=== PATIENT | female | born 1985 | race Caucasian/White ===

== ENCOUNTER 2019-05-22 09:42 | Outpatient (CLI) | payer MEDICARE, SELFPAY ==
--- NOTE | 2019-05-22 09:56 | CT_ITS ---
WS: [id number] CT ABDOMEN AND PELVIS WITH AND WITHOUT CONTRAST HISTORY: RLQ ABDOMINAL PAIN/HEMATURIA/HX OF OVARIAN CYST TECHNIQUE: Unenhanced 5 mm axial imaging first performed through the abdomen. Post contrast imaging t hrough the abdomen and pelvis. Oral contrast has been provided. Sagittal and coronal reformats are s ubmitted. All CT scans at [facility] use at least one of these dose optimization techniqu es: automated exposure control; mA and/or kV adjustment per patient size (includes targeted exams whe re dose is matched to clinical indication); or iterative reconstruction. CONTRAST: Omnipaque 300; 95 mL IV. DLP: 4318.84 mGy.cm COMPARISON: 01/07/2011, 07/26/2013. Groundglass opacification in the LEFT lower lobe. This opacification is been present on multiple prio r examinations in the past with no progression. Heart size is normal. No hiatal hernia. Mild hepatic steatosis without significant hepatomegaly. No liver mass. Normal bile ducts. Gallbladde r, pancreas, spleen, adrenal glands and aorta are normal. RIGHT kidney: Normal size RIGHT kidney with no mass or obstruction or calcifications. No uroepithelia l filling defects within the ureter or renal pelvis. LEFT kidney: Normal size LEFT kidney with no mass or obstruction or calcifications. No uroepithelial filling defects within the ureter or renal pelvis. No free fluid, free air or adenopathy in the abdomen or pelvis. The appendix is normal. No GI tract o bstruction. Uterus and ovaries are both identified and normal. There is a small follicle in the LEFT ovary measur ing 2.1 cm. Urinary bladder is normal. No osteoblastic or osteolytic bone disease. CT/CT abdomen pelvis wo/w [id number] IMPRESSION: 1. No renal calcifications, mass or obstruction. 2. Normal urinary bladder. 3. Multiple follicles LEFT ovary. 4. No adenopathy or ascites.
[2019-05-22] MEDS: iohexol 300 mg/mL 100 mL Btl IV (11:27)
== END 2019-05-22 09:43 | disposition home or self-care (01) ==
LOC: RAD 09:49
PROVIDERS: Family Provider Nurse Practitioner Family; PCP Nurse Practitioner Family; Visit Provider Nurse Practitioner Family
DX: R10.31 Right lower quadrant pain (principal); Z87.42 Personal history of other diseases of the female genital tract; R31.9 Hematuria, unspecified
CPT/HCPCS: 74178

== ENCOUNTER 2019-10-02 08:08 | Day surgery (SDC) | payer MEDICARE, SELFPAY ==
[2019-09-29 11:58] VITALS: BMI 39.9
[2019-10-02 08:43] VITALS: BP 114/70; PULSE 87; RESP 18; TEMP 36.1; O2SAT 100
[2019-10-02] MEDS: sodium chloride 0.9% 1,000 ML 100 ML IV (08:58)
--- NOTE | 2019-10-02 09:02 | ANES.PREANE2 ---
Pre-Anesthetic Assessment Pre-Anesthetic Assessment: Height/Weight: Height 1.57 m Weight 98.883 kg Temp Pulse Resp BP Pulse Ox 97.0 F L 87 18 114/70 100 10/02/19 08:43 10/02/19 08:43 10/02/19 08:43 10/02/19 08:43 10/02/19 08:43 Preop Diagnosis: c Proposed Procedure: Operation Date: 10/02/19 09:45 Proposed Procedures p EGD(Not Applicable) - Bridger Yang MD s Colonoscopy(Not Applicable) - Bridger Yang MD Last intake: Intake Last Liquid Date 10/02/19 Last Liquid Time 23:00 Social: Social History: Tobacco and No alcohol Exam: Pre-Anes Outpt Exam: alert, oriented x 3, clear to auscultation bilaterally and regular rate & rhythm Airway: Submandibular: WNL Cervical ROM: WNL MP: 1 Dentition: False (upper and lower) History/ROS: No significant history except as noted Pulmonary: Pulmonary: Asthma and [place] CV/HEM: CV/HEM: None reported : : None reported Hepatic: Hepatic: None reported GI: GI: GERD Metabolic: Metabolic: Morbid obesity and Thyroid Musc/skel: Musc/skel: Lower Back Pain Neuropsych: Neuropsych: Anxiety and Depression Anesthetic Plan: ASA status: 3 Anesthesia: Anesthesia Evaluation and MAC Risk of > 500 ml blood loss (7ml/kg in children): No Meds/Allergies Current Medications: Current Medications Generic Name Dose Route Start Last Admin Trade Name Freq PRN Reason Stop Dose Admin Sodium Chloride 1,000 mls @ 100 m ls/hr 10/02/19 08:45 10/02/19 08:58 Sodium Chloride 0.9% IV 10/03/19 08:44 100 mls/hr .Q10H SUYAPA Administration PFSH Anesthesia PFSH: Medical History Anxiety Asthma Depression Heartburn Hypothyroidism, unspecified Mental disability without special needs Family History Mother Glaucoma Hypertension Diabetes Father Cancer Social History Smoking and tobacco status: current every day smoker Alcohol intake: never Adopted: No Lives independently: No Marital status: Single History of recent travel: No Current gender identity: Female Data Anesthesia Cardiac Studies: No Data to Display
[2019-10-02 09:03] LABS: OR HCG Qualitative Urine Negative (Negative)
--- NOTE | 2019-10-02 10:18 | W.PM.OPSUD ---
Surgery/Procedure H&P Update DATE OF PROCEDURE: October 02, 2019 PREOP DIAGNOSIS: c PLANNED PROCEDURE: Operation Date: 10/02/19 09:45 Proposed Procedures p EGD(Not Applicable) - Bridger Yang MD s Colonoscopy(Not Applicable) - Bridger Yang MD
--- NOTE | 2019-10-02 10:19 | PM.OPSURHP ---
Providers/Chief Complaint Primary Care Provider: Jung Agarwal MD Chief Complaint: Colonscopy and egd History of Present Illness Edith Montalvo is a 33 year old female Medications/Allergies Home Medications Medication Instructions Recorded Confirmed Last Taken Type albuterol sulfate 2.5 mg INHALATION Q6H PRN 06/16/19 09/29/19 10/01/19 History budesonide 0.25 mg/2 mL suspension 2 ml INHALATION BID PRN 06/16/19 09/29/19 10/01/19 History for nebulization budesonide-formoterol HFA 80 2 puff INHALATION BID PRN 06/16/19 09/29/19 10/01/19 History mcg-4.5 mcg/actuation aerosol inhaler bupropion HCl 150 mg 24 hr tablet, 150 mg PO DAILY tab 06/16/19 09/29/19 10/01/19 History extended release levothyroxine 150 mcg capsule 150 mcg PO DAILY 06/16/19 09/29/19 10/01/19 History montelukast 10 mg tablet 10 mg PO DAILY 06/16/19 09/29/19 10/01/19 History Allergies Allergy/AdvReac Type Severity Reaction Status Date / Time Penicillins Allergy Severe peels skin Verified 09/29/19 11:55 off aspirin Allergy Unknown Verified 06/19/19 09:55 clindamycin Allergy Unknown Verified 06/19/19 09:55 PFSH PFSH: Medical History Anxiety Asthma Depression Heartburn Hypothyroidism, unspecified Mental disability without special needs Family History Mother Glaucoma Hypertension Diabetes Father Cancer Social History Smoking and tobacco status: current every day smoker Alcohol intake: never Adopted: No Lives independently: No Marital status: Single History of recent travel: No Current gender identity: Female Vital Signs Vitals Signs: Last Vital Signs Temp 97.0 F L 10/02/19 08:43 Pulse 87 10/02/19 08:43 Resp 18 10/02/19 08:43 BP 114/70 10/02/19 08:43 Pulse Ox 100 10/02/19 08:43 Coding Level of Care Code Acute Systems Applications Programming Lead for [employer]
[2019-10-02 10:33] VITALS: BP 117/67; PULSE 79; RESP 16; TEMP 36.9; O2SAT 100
--- NOTE | 2019-10-02 11:08 | ANE.PACU2 ---
Inpatient post-anesthesia follow up: Airway intact: Yes Vital signs: Temperature 98.5 F Pulse Rate 79 Respiratory Rate 16 Blood Pressure 117/67 Pulse Oximetry 100 Oxygen Delivery Me thod Nasal Cannula Oxygen Flow Rate 3 Fraction of Inspir ed Oxygen Hydration adequate: Yes Nausea and vomiting: Yes Pain level: 1 Mental status: Baseline
== END 2019-10-02 11:00 | disposition home or self-care (01) ==
PROVIDERS: PCP Family Medicine; Visit Provider Internal Medicine
PROC: 0DJ08ZZ Inspection of Upper Intestinal Tract, Via Natural or Artificial Opening Endoscopic (ICD-10-PCS; CPT 43235; principal; 2019-10-02 09:45)
PROC: 0DJD8ZZ Inspection of Lower Intestinal Tract, Via Natural or Artificial Opening Endoscopic (ICD-10-PCS; CPT 45378; 2019-10-02 09:45)
DX: K92.1 Melena (principal); R10.13 Epigastric pain; K21.9 Gastro-esophageal reflux disease without esophagitis; E66.01 Morbid (severe) obesity due to excess calories; Z68.39 Body mass index [BMI] 39.0-39.9, adult; E03.9 Hypothyroidism, unspecified; F41.9 Anxiety disorder, unspecified; F32.9 Major depressive disorder, single episode, unspecified; J45.909 Unspecified asthma, uncomplicated; F17.210 Nicotine dependence, cigarettes, uncomplicated
CPT/HCPCS: 12345; 43235; 84703; G0121; J2704; J7030

== ENCOUNTER → 2020-01-12 11:33 | Outpatient (BNVA) | payer MEDICARE, SELFPAY | PROVIDERS: PCP Family Medicine; Visit Provider Obstetrics & Gynecology | DX: Z11.59 Encounter for screening for other viral diseases (principal) | CPT/HCPCS: 87635 ==

== ENCOUNTER 2020-01-17 08:14 | Day surgery (SDC) | payer MEDICARE, SELFPAY ==
[2020-01-12 12:45] VITALS: BMI 39.4
--- NOTE | 2020-01-12 12:58 | ANES.PREANE2 ---
Pre-Anesthetic Assessment Pre-Anesthetic Assessment: Height/Weight: Height 1.63 m Weight 104.326 kg Preop Diagnosis: Abominal pain Proposed Procedure: Operation Date: 01/17/20 09:50 Proposed Procedures p Laparoscopy Diagnostic 51745 R10.2(Not Applicable) - Bharat Mccoy MD Familial anesthetic complications: None Social: Social History: Tobacco and No alcohol Exam: Pre-Anes Outpt Exam: alert, oriented x 3, clear to auscultation bilaterally and regular rate & rhythm Airway: Cervical ROM: WNL MP: 3 Dentition: False Pulmonary: Pulmonary: Asthma and COPD Comments: mass on her lung (too deep to biopsy) GI: GI: GERD Metabolic: Metabolic: Thyroid Comments: graves disease Musc/skel: Musc/skel: Lower Back Pain Comments: fall risk Neuropsych: Neuropsych: Depression Comments: schizophrenic, separation anxiety, she does not talk to people, only to her mother Anesthetic Plan: ASA status: 2 Anesthesia: General Risk of > 500 ml blood loss (7ml/kg in children): No PFSH Anesthesia PFSH: Medical History Anxiety Asthma Depression Hypothyroidism, unspecified Mental disability without special needs Surgical History H/O colonoscopy 09/2019 H/O esophagogastroduodenoscopy 09/2019 H/O tubal ligation History of tonsillectomy Family History Mother Glaucoma Hypertension Diabetes Hyperlipidemia Father Cancer Denies family history of Anesthesia complication Bleeding disorder Stroke Social History Smoking and tobacco status: current every day smoker cigarettes Packs smoked per day: 0.5 Alcohol intake: never Adopted: No Lives independently: No Current occupational status: disabled Female Reproductive History: Date of last menstrual period: 12/31/19 Data Anesthesia Cardiac Studies: No Data to Display
[2020-01-17 08:30] VITALS: BP 130/85; PULSE 85; RESP 18; TEMP 36.3; O2SAT 98
[2020-01-17] MEDS: scopolamine 1.5 Patch 1 PATCH TRANSDERMA (08:52)
[2020-01-17] MEDS: lactated ringers 500 ML IV (08:52)
--- NOTE | 2020-01-17 08:54 | W.PM.OPSUD ---
Surgery/Procedure H&P Update DATE OF PROCEDURE: January 17, 2020 DATE H&P PERFORMED: 01/12/20 H&P UPDATE INFORMATION: I have reviewed H&P completed within last 30 days, I have examined patient prior to procedure and No changes to prior documentation PREOP DIAGNOSIS: Chronic pelvic pain PLANNED PROCEDURE: Operation Date: 01/17/20 09:50 Proposed Procedures p Laparoscopy Diagnostic 51886 R10.2(Not Applicable) - Bharat Mccoy MD
[2020-01-17] MEDS: sodium chloride 0.9% 1,000 ML 30 ML IV (09:44)
[2020-01-17 09:47] LABS: Basophils # 0.1 10^3/uL (0.0-0.1); Basophils % 0.5 %; Eosinophils # 0.3 10^3/uL (0.0-0.8); Eosinophils % 2.3 %; Hematocrit 42.9 % (37.0-47.0); Hemoglobin 14.2 g/dL (11.5-15.3); Lymphocytes # 3.1 10^3/uL (0.8-4.8); Lymphocytes % 24.1 %; Mean Corpuscular HGB Conc 33.1 g/dL (30.0-36.0); Mean Corpuscular Hemoglobin 30.7 pg (28.0-34.0); Mean Corpuscular Volume 92.7 fL (81-99); Mean Platelet Volume 9.4 fL (7.4-10.4); Monocytes # 0.7 10^3/uL (0.2-0.9); Monocytes % 5.6 %; Neutrophils % 67.1 %; Nucleated Red Blood Cells % 0 %; Platelet Count 384 10^3/cmm (130-400); Red Blood Count 4.63 10^6/uL (4.1-5.3); Red Cell Distribution Width 14.6 % (12.1-15.1); White Blood Count 12.8 10^3/uL (4.0-10.0)
--- NOTE | 2020-01-17 09:58 | ANES.PREANE2 ---
Pre-Anesthetic Assessment Pre-Anesthetic Assessment: Height/Weight: Height 1.63 m Weight 104.326 kg Temp Pulse Resp BP Pulse Ox 97.3 F L 85 18 130/85 98 01/17/20 08:30 01/17/20 08:30 01/17/20 08:30 01/17/20 08:30 01/17/20 08:30 Preop Diagnosis: Chronic pelvic pain Proposed Procedure: Operation Date: 01/17/20 09:50 Proposed Procedures p Laparoscopy Diagnostic 11331 R10.2(Not Applicable) - Bharat Mccoy MD Last intake: Intake Last Liquid Date 01/16/20 Last Liquid Time 23:00 Last Solid Date 01/16/20 Last Solid Time 17:00 Social: Social History: Tobacco and No alcohol Exam: Pre-Anes Outpt Exam: alert, oriented x 3, clear to auscultation bilaterally and regular rate & rhythm Airway: Submandibular: WNL Cervical ROM: WNL MP: 1 Dentition: False History/ROS: No significant complaints Pulmonary: Pulmonary: Asthma CV/HEM: CV/HEM: None reported : : None reported Hepatic: Hepatic: None reported GI: GI: GERD Metabolic: Metabolic: Thyroid Comments: Graves Disease s/p chemical ablation; now hypothyroid but euthyroid on meds Musc/skel: Musc/skel: None reported Neuropsych: Neuropsych: Anxiety Comments: Cognitive and speech delays Anesthetic Plan: ASA status: 3 Anesthesia: General Other: Consent given by mother as well as history. Meds/Allergies Current Medications: Current Medications Generic Name Dose Route Start Last Admin Trade Name Freq PRN Reason Stop Dose Admin Sodium Chloride 1,000 mls @ 30 ml s/hr 01/17/20 08:30 01/17/20 09:44 Sodium Chloride 0.9% IV 01/18/20 08:29 30 mls/hr .Q24H SUYAPA Administration PFSH Anesthesia PFSH: Medical History Anxiety Asthma Depression Hypothyroidism, unspecified Mental disability without special needs Surgical History H/O colonoscopy 09/2019 H/O esophagogastroduodenoscopy 09/2019 H/O tubal ligation History of tonsillectomy Family History Mother Glaucoma Hypertension Diabetes Hyperlipidemia Father Cancer Denies family history of Anesthesia complication Bleeding disorder Stroke Social History Smoking and tobacco status: current every day smoker cigarettes Packs smoked per day: 0.5 Alcohol intake: never Adopted: No Lives independently: No Current occupational status: disabled Female Reproductive History: Date of last menstrual period: 12/31/19 Data Anesthesia CBC & Chem 7: 01/17/20 08:46 01/17/20 08:46 Other Labs: Laboratory Results - last 48 hr 01/17/20 08:46 WBC 12.8 H RBC 4.63 Hgb 14.2 Hct 42.9 MCV 92.7 MCH 30.7 MCHC 33.1 RDW 14.6 Plt Count 384 MPV 9.4 Neut % (Auto) 67.1 Lymph % (Auto) 24.1 [place] % (Auto) 5.6 Eos % (Auto) 2.3 Baso % (Auto) 0.5 Neut # (Auto) 8.60 H Lymph # (Auto) 3.1 [place] # (Auto) 0.7 Eos # (Auto) 0.3 Baso # (Auto) 0.1 Nucleated RBC % (auto) 0 Nucleated RBCs # 0.0 Cardiac Studies: No Data to Display
[2020-01-17 10:05] LABS: Blood Urea Nitrogen 9 mg/dL (6-20); Calcium 9.4 mg/dL (8.5-10.5); Carbon Dioxide 27 mmol/L (22-29); Chloride 102 mmol/L (98-107); Glomerular Filtration Rate 96.4 mL/min (90-130); Glucose 100 mg/dL (65-115); Osmolality Calculated 287 mOsm/kg (285-295); Sodium 139 mmol/L (136-145)
[2020-01-17 10:13] LABS: OR HCG Qualitative Urine Negative (Negative)
[2020-01-17 10:22] LABS: Urine Appearance Cloudy (CLEAR); Urine Color Red (Yellow)
[2020-01-17 10:23] LABS: Add Urine Culture? Yes; Add Urine Microscopic? YES; Bacteria Urine 1+ /hpf; Bilirubin Urine Neg (Negative); Blood Urine 3+ (Negative); Glucose Urine UA Norm (Normal); Ketones Urine Negative (Negative); Leukocyte Esterase Urine Trace (Negative); Nitrate Urine Negative (Negative); Protein Urine 1+ (Negative); RBC Urine TOO NUMEROUS TO CNT /hpf (0-2); Specific Gravity, Urine 1.005 (1.005-1.030); Squamous Epithelial Cell Urine RARE /hpf (0-5); Sulfosalicylic Acid Urine Positive (Negative); Urobilinogen Urine Norm (Negative); WBC Urine 0-4 /hpf (0-5); pH Urine 8 (5-7)
[2020-01-17] MEDS: vancomycin 1,000 MG in sodium chloride 0.9% 250 ML 250 MG IV (10:37)
--- NOTE | 2020-01-17 11:34 | P.OP_ITS ---
Operative Report Date of procedure: January 17, 2020 Pre-op Diagnosis: Chronic pelvic pain Post-op diagnosis: same Procedure Done: diagnostic laparoscopy Pathology: none sent Surgeon: Bharat whiting M.D. Anesthesia: General Estimated blood loss (mL): 5 IV fluids (mL): 1,000 Urine output (mL): 200 Complications: none Findings: normal pelvic organs Condition: stable Disposition: PACU Brief History: 33-year-old female with history of chronic pelvic pain Procedure: After informed consent, the patient was taken to the operating room where general anesthesia was administered. The patient was examined under anesthesia and found to have a normal uterus with normal adnexa. She was placed in the dorsal lithotomy position and prepped and draped in sterile fashion. Pre- Procedure Time-Out verifying the correct patient identity, correct procedure verified with consent, correct site and side, correct patient position, availability of correct implants and any special equipment or requirements was performed and acknowledge by the OR team. A weighted speculum was placed in the vagina, and the anterior lip of cervix was grasped with the single toothed tenaculum. A uterine manipulator was advanced into the endocervical. Tenaculum was removed after uterine manipulator was secured. The speculum was removed from the vagina. An intraumbilical incision was made with a scalpel. While tenting up on the abdomen, a Verres needle with sleeve was admitted into the intra-abdominal cavity. A saline drop test was performed and noted to be within normal limits. Pneumoperitoneum was attained with 4 liters of carbon dioxide. The Verres needle was removed. A 5 mm trocar and sleeve were admitted into the abdomen and laparoscopic confirmation of location was achieved, A second incision was made 3 cm above the symphysis pubis, and a 5 mm trocar and sleeve were admitted into the abdomen under direct, laparoscopic visualization without complication. A survey revealed normal abdominal anatomy but pelvic survey shows normal uterus, left and right adnexa. A 5 mm blunt probe was advanced through the second trocar sleeve, and light manipulation of ovaries and uterus to assess the posterior aspects was performed. Carbon dioxide was allowed to escape from the abdomen. The instruments were removed, and skin cover with a bandage. The instruments were removed from the vagina, and excellent hemostasis was noted. The patient tolerated the procedure well, and sponge, lap and needle count were correct times two. The patient taken to the recovery room in good condition.
[2020-01-17 11:40] VITALS: BP 131/75; PULSE 88; RESP 16; TEMP 36.8; O2SAT 94
[2020-01-17 11:45] VITALS: BP 126/80; PULSE 84; RESP 17; O2SAT 99
[2020-01-17 11:50] VITALS: BP 131/91; PULSE 67; RESP 18; TEMP 36.3; O2SAT 93
[2020-01-17 11:59] VITALS: BP 118/79; PULSE 69; RESP 18; TEMP 36.6; O2SAT 95
[2020-01-17 12:16] VITALS: BP 120/80; PULSE 70; RESP 18; TEMP 36.6; O2SAT 96
== END 2020-01-17 12:38 | disposition home or self-care (01) ==
PROVIDERS: PCP Family Medicine; Visit Provider Obstetrics & Gynecology
PROC: (CPT 49320; principal; 2020-01-17 09:50)
DX: R10.2 Pelvic and perineal pain (principal); G89.29 Other chronic pain; K21.9 Gastro-esophageal reflux disease without esophagitis; F41.9 Anxiety disorder, unspecified; J44.9 Chronic obstructive pulmonary disease, unspecified; F17.210 Nicotine dependence, cigarettes, uncomplicated
CPT/HCPCS: 49320; 12345; 36415; 80048; 81001; 81025; 84703; 85025; 86850; 86900; 87086; 96365; J0131; J2405; J2704; J3010; J3370; J3490; J7030; J7050

== ENCOUNTER → 2020-04-29 08:30 | Outpatient (BNVA) | payer MEDICARE, SELFPAY | PROVIDERS: PCP Family Medicine; Visit Provider Obstetrics & Gynecology | DX: R10.2 Pelvic and perineal pain (principal); G89.29 Other chronic pain; N93.8 Other specified abnormal uterine and vaginal bleeding; N91.4 Secondary oligomenorrhea; N80.9 Endometriosis, unspecified | CPT/HCPCS: 83001; 84146; 84443; 84702 ==

== ENCOUNTER → 2020-06-04 08:46 | Outpatient (BNVA) | payer MEDICARE, SELFPAY | PROVIDERS: PCP Family Medicine; Referring Provider Obstetrics & Gynecology; Visit Provider Internal Medicine | DX: E89.0 Postprocedural hypothyroidism (principal); Z86.39 Personal history of other endocrine, nutritional and metabolic disease; E03.9 Hypothyroidism, unspecified | CPT/HCPCS: 36415; 84439; 99204 ==

== ENCOUNTER 2020-06-04 10:24 | Outpatient (CLI) | payer MEDICARE, SELFPAY ==
[2020-06-04 12:53] LABS: Free T4 Free Thyroxine 1.78 ng/dL (0.82-1.77)
== END 2020-06-04 10:25 | disposition home or self-care (01) ==
PROVIDERS: PCP Family Medicine; Visit Provider Internal Medicine
DX: E03.9 Hypothyroidism, unspecified (principal)
CPT/HCPCS: 36415; 84439

== ENCOUNTER 2020-08-16 09:18 | Outpatient (CLI) | payer MEDICARE, SELFPAY ==
[2020-08-16 10:08] LABS: Free T4 Free Thyroxine 1.89 ng/dL (0.82-1.77); Thyroid Stimulating Hormone 0.11 uIU/mL (0.27-4.20)
== END 2020-08-16 09:19 | disposition home or self-care (01) ==
PROVIDERS: PCP Family Medicine; Visit Provider Internal Medicine
DX: E03.9 Hypothyroidism, unspecified (principal)
CPT/HCPCS: 36415; 84439; 84443

== ENCOUNTER → 2020-11-19 08:31 | Outpatient (BNVA) | payer MEDICARE, SELFPAY | PROVIDERS: PCP Family Medicine; Visit Provider Internal Medicine | DX: Z53.9 Procedure and treatment not carried out, unspecified reason (principal) | CPT/HCPCS: 99214 ==

== ENCOUNTER 2021-09-09 07:42 | Outpatient (CLI) | payer MEDICARE, SELFPAY ==
--- NOTE | 2021-09-09 08:11 | CT_ITS ---
WS: [id number] CT CHEST TECHNIQUE: Noncontrast CT of the chest with coronal and sagittal reformatted images. CLINICAL INFORMATION: GROUND GLASS OPACITY PRESENT ON IMAGING OF LUNG COMPARISON: CT and CT abdomen pelvis May 22, 2019 DLP: 584.[address] scans at [facility] use at least one of these dose optimization techniques: automated e xposure control; mA and/or kV adjustment per patient size (includes targeted exams where dose is matc hed to clinical indication); or iterative reconstruction. FINDINGS: Previously described hazy groundglass opacity in the LEFT lower lobe is unchanged compared to 4 and May 22, 2019. This measures approximately 11 mm in maximum dimension. Additional slightly spiculated opacity in the RIGHT upper lobe also unchanged compared to 2013. This measures approximate ly 10 m. Additional smaller area of Fibrosis in the LEFT upper lobe best seen on the coronal imaging also unchanged since 2014 Normal caliber thoracic aorta. No mediastinal or hilar lymphadenopathy. No axillary lymphadenopathy. Normal GE junction. CT/CT chest wo con [id number] IMPRESSION: 1. No significant changes compared to 2014. 2. Previously described fibrotic opacity LEFT lower lobe is unchanged. 3. Additional fibrotic opacities in RIGHT upper lobe and LEFT upper lobe are a lso unchanged. 4. No new suspicious pulmonary parenchymal opacities. 5. No mediastinal or hilar lymphadenopathy.
--- NOTE | 2021-09-09 08:11 | US_ITS ---
WS: [id number] Abdomen ultrasound, 09/09/2021 Clinical Data: CHRONIC DIARRHEA/GERD/ABD PAIN,COLICKY Comparison: Gallbladder and right upper quadrant ultrasound, 09/30/2018. Findings: The pancreas shows no cyst, pseudocyst or evidence of pancreatitis. The liver shows no cysts, masses or dilated intrahepatic ducts. The liver measured 15.24 cm. The gallbladder has no stones or sludge. The wall measures 0.3 cm with no pericholecystic fluid. The common bile duct is 0.3 cm and no intraductal abnormalities are noted. The right kidney is 10.3 cm. No cysts, masses or hydronephrosis is seen. The left kidney is 10.5 cm. No cysts, masses or hydronephrosis is seen. The abdominal aorta is not dilated and the inferior vena cava has normal flow. No vascular abnormalit ies are seen. The spleen measures 10.6 cm and there are no intrasplenic masses or capsular abnormalities. US/US abdomen complete* [id number] Impression: Negative abdomen ultrasound.
== END 2021-09-09 07:43 | disposition home or self-care (01) ==
PROVIDERS: PCP Family Medicine; Visit Provider Nurse Practitioner
DX: R91.8 Other nonspecific abnormal finding of lung field (principal); R10.84 Generalized abdominal pain; K21.9 Gastro-esophageal reflux disease without esophagitis; N93.8 Other specified abnormal uterine and vaginal bleeding; K52.9 Noninfective gastroenteritis and colitis, unspecified; F41.9 Anxiety disorder, unspecified
CPT/HCPCS: 71250; 76700

== ENCOUNTER 2023-04-29 07:15 | Outpatient (CLI) | payer MEDICARE, SELFPAY ==
--- NOTE | 2023-04-29 07:30 | US_ITS ---
WS: [id number] RIGHT UPPER QUADRANT ULTRASOUND HISTORY: R10.9 - Unspecified abdominal pain COMPARISON: None available. Liver: 15.1 cm in length. Normal size liver and echogenicity. No bile duct dilatation or mass. Portal Vein: Normal hepatopetal flow with monophasic waveform. Gallbladder: Normally distended. No gallbladder wall thickening. Single focus of ringdown artifact in the gallbladder wall, nondependent portion. No stones. CBD: 0.3 cm Pancreas: Portions of the head and tail are obscured. The body is negative. Right kidney: 10.9 cm in length. Normal size and echogenicity. No hydronephrosis or mass. Aorta and IVC: Unremarkable abdominal aorta and IVC. No ascites. IMPRESSION: 1. No cholelithiasis. 2. Minimal gallbladder cholesterolosis. 3. Negative liver.
== END 2023-04-29 07:16 | disposition home or self-care (01) ==
LOC: RAD 07:15
PROVIDERS: PCP Family Medicine; Visit Provider Internal Medicine
DX: R10.9 Unspecified abdominal pain (principal)
CPT/HCPCS: 76705

== ENCOUNTER → 2023-05-20 10:50 | Outpatient (BNVA) | payer MEDICARE, SELFPAY | PROVIDERS: PCP Family Medicine; Visit Provider Nurse Practitioner Women's Health | DX: Z12.4 Encounter for screening for malignant neoplasm of cervix (principal); N91.4 Secondary oligomenorrhea; R10.2 Pelvic and perineal pain; G89.29 Other chronic pain | CPT/HCPCS: 87624 ==

== ENCOUNTER 2023-05-31 14:03 | Outpatient (CLI) | payer MEDICARE, SELFPAY ==
--- NOTE | 2023-05-31 14:15 | US_ITS ---
WS: [id number] ULTRASOUND THYROID TECHNIQUE: Ultrasound of the thyroid. CLINICAL INFORMATION: E89.0 - Postprocedural hypothyroidism COMPARISON: None. FINDINGS: Thyroid: Prior postoperative changes total thyroidectomy. No visualized residual or recurrent thyroid tissue in the thyroid bed. No cystic or solid lesions. Cervical lymphadenopathy: None. IMPRESSION: 1. Prior postoperative changes total thyroidectomy. 2. Normal thyroid bed. No residual or recurrent thyroid tissue visualized. 3. No other suspicious findings.
== END 2023-05-31 14:04 | disposition home or self-care (01) ==
LOC: RAD 14:03
PROVIDERS: PCP Family Medicine; Visit Provider Internal Medicine
DX: E89.0 Postprocedural hypothyroidism (principal)
CPT/HCPCS: 76536

== ENCOUNTER → 2023-06-03 10:05 | Outpatient (BNVA) | payer MEDICARE, SELFPAY | PROVIDERS: PCP Family Medicine; Visit Provider Internal Medicine | DX: E89.0 Postprocedural hypothyroidism (principal); J45.909 Unspecified asthma, uncomplicated; R13.10 Dysphagia, unspecified; Z86.39 Personal history of other endocrine, nutritional and metabolic disease; K52.9 Noninfective gastroenteritis and colitis, unspecified; N91.2 Amenorrhea, unspecified; Z79.890 Hormone replacement therapy | CPT/HCPCS: 36415; 84439; 84443; 99214 ==

== ENCOUNTER → 2023-06-10 10:07 | Outpatient (BNVA) | payer MEDICARE, SELFPAY | PROVIDERS: PCP Family Medicine; Visit Provider Nurse Practitioner Women's Health | DX: N91.5 Oligomenorrhea, unspecified (principal); N83.02 Follicular cyst of left ovary | CPT/HCPCS: 76830 ==

== ENCOUNTER → 2023-10-11 14:34 | Outpatient (BNVA) | payer MEDICARE, SELFPAY | PROVIDERS: PCP Family Medicine; Visit Provider Nurse Practitioner Women's Health | DX: Z30.9 Encounter for contraceptive management, unspecified (principal); R35.0 Frequency of micturition; N91.4 Secondary oligomenorrhea; R10.2 Pelvic and perineal pain; G89.29 Other chronic pain | CPT/HCPCS: 81000; 87086 ==

== ENCOUNTER → 2023-11-16 13:28 | Outpatient (BNVA) | payer MEDICARE, SELFPAY | PROVIDERS: PCP Family Medicine; Visit Provider Obstetrics & Gynecology | DX: R10.2 Pelvic and perineal pain (principal); Z98.890 Other specified postprocedural states; Z87.898 Personal history of other specified conditions; N85.8 Other specified noninflammatory disorders of uterus | CPT/HCPCS: 76830 ==

== ENCOUNTER → 2023-12-27 10:40 | Outpatient (BNVA) | payer MEDICARE, SELFPAY | PROVIDERS: PCP Family Medicine; Visit Provider Internal Medicine | DX: E89.0 Postprocedural hypothyroidism (principal); Z86.39 Personal history of other endocrine, nutritional and metabolic disease; K52.9 Noninfective gastroenteritis and colitis, unspecified; N91.2 Amenorrhea, unspecified; R13.10 Dysphagia, unspecified; Z79.890 Hormone replacement therapy | CPT/HCPCS: 99214 ==

== ENCOUNTER → 2024-06-12 12:14 | Outpatient (BNVA) | payer MEDICARE, SELFPAY | PROVIDERS: PCP Family Medicine; Visit Provider Internal Medicine | DX: E89.0 Postprocedural hypothyroidism (principal); Z86.39 Personal history of other endocrine, nutritional and metabolic disease; K52.9 Noninfective gastroenteritis and colitis, unspecified; N91.2 Amenorrhea, unspecified; R13.10 Dysphagia, unspecified | CPT/HCPCS: 99214 ==

== ENCOUNTER → 2024-08-21 09:16 | Outpatient (BNVA) | payer MEDICARE, SELFPAY | PROVIDERS: PCP Family Medicine; Visit Provider Internal Medicine | DX: E89.0 Postprocedural hypothyroidism (principal); Z86.39 Personal history of other endocrine, nutritional and metabolic disease | CPT/HCPCS: 99214 ==

== ENCOUNTER 2025-03-06 18:51 | Emergency (ER) | payer MEDICARE, SELFPAY ==
--- OUTSIDE RECORDS SUMMARY | 2025-03-06 18:59 | XMS_ITS | Clinical Summary ---
Author Organization [facility] Address [address] [place] [address] Phone Care Team Providers Care Psych Assistant Name Role Phone Radha Rodarte KANE Primary Care Provider [phone]- [phone] Immunizations Immunization Administration Dates Next Due (M-M-R II/PRIORIX)(12 MO UP) MEASLES, MUMPS AND RUBELLA VIRUS VACCINE, 0.5 ML IM/SUBCUT 12/17/1992 (TDVAX)(7 YRS UP) TETANUS AN D DIPHTHERIA TOXOIDS, ADSORBED (2 LF OF TETANUS TOXOID AND 2 LF OF DIPHTHERIA TOXOID), 0.5ML (PF), IM 10/19/2004,11/23/1996 Dt Dtp Dtap Vaccine 12/17/1992 Hepatitis B Vaccine 05/15/1999,01/02/1999,1998 IPV/OPV 12/17/1992,08/08/1991 Social History Tobacco Use Types Packs/Day Years Used Date Smoking Tobacco: Never Assessed Comments Unknown Sex and Gender Information Value Date Recorded Sex Assigned at Not on file 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
--- OUTSIDE RECORDS SUMMARY | 2025-03-06 18:59 | XMS_ITS | Encounter Summary ---
Author Organization [facility] Address [address] [place] [address] Care Team Providers Care Water Supply Technician Name Role Phone Radha Rodarte APN Primary Care Provider [phone]- [phone] Encounter Details Date Type Department Care Team (Latest Contact Info) Description 01/03/2001 Outpatient Historical [facility] [place] [address] [place] [address] Devon Booker, DPM [address] [place] [address] Dermatophytosis of foot (Primary Dx); Other specified disorder of skin Social History Tobacco Use Types Packs/Day Years Used Date Smoking Tobacco: Never Assessed Comments Unknown Sex and Gender Information Value Date Recorded Sex Assigned at Not on file Legal Sex Female 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
--- OUTSIDE RECORDS SUMMARY | 2025-03-06 18:59 | XMS_ITS | Encounter Summary ---
Author Organization [facility] Address [address] [place] [address] Care Team Providers Care Diet Tech Name Role Phone Radha Rodarte APN Primary Care Provider +1- [phone] Encounter Details Date Type Department Care Team (Latest Contact Info) Description 05/22/2018 Ancillary Orders [facility] Pre-Registration [place] CALL TO MAKE APPOINTMENT ONLY [address] [place] [address] Radha Rodarte APN [address] [place] [address] Unspecified lump in the right breast, upper outer quadrant Social History Tobacco Use Types Packs/Day Years Used Date Smoking Tobacco: Never Assessed Comments Unknown Sex and Gender Information Value Date Recorded Sex Assigned at Not on file 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
--- OUTSIDE RECORDS SUMMARY | 2025-03-06 18:59 | XMS_ITS | Encounter Summary ---
Author Organization [facility] Address [address] [place] [address] Care Team Providers Care Sewing Machine Operator Zipper Name Role Phone Radha Rodarte APN Primary Care Provider +1- [phone] Encounter Details Date Type Department Care Team (Latest Contact Info) Description 05/13/2001 Outpatient Historical [facility] Dermatology- [facility] [address] [place] [address] Jose Barbosa MD NO ADDRESS ON FILE DYSHIDROSIS (Primary Dx) Social History Tobacco Use Types Packs/Day Years Used Date Smoking Tobacco: Never Assessed Comments Unknown Sex and Gender Information Value Date Recorded Sex Assigned at Not on file Legal Sex Female 4:23 AM PROCESS SAFETY SPECIALIST Gender Identity Not on file Sexual Orientation Not on file documented as of this encounter Plan of Treatment Not on file documented as of this encounter Visit Diagnoses Diagnosis Dyshidrosis- Primary documented in this encounter Care Teams Sewing Machine Operator Zipper Relationship Specialty Start Date End Date Radha Rodarte APN PCP - General NURSE PRACTITIONER 05/23/18 documented as of this encounter
--- OUTSIDE RECORDS SUMMARY | 2025-03-06 18:59 | XMS_ITS ---
Author Organization Unknown Vital Signs BpStanding BpSitting BpSupine Date Temperature HeartRate Weight Hei ght Spo2 Respiration Bmi HeadCircumference FieldCount TimeRecorded NeckCircumferen ce WaistCircumference Pulse Custom 138/72 08/28 09:00 :00 97.3 83 223,0 97 35.9 9 09:00 83 120/76 08/14 08:58 :00 98 77 224,0 98 36.1 5 08:58 77 160/80 07/25 10:44 :00 97.3 84 226,0 98 36.4 7 10:44 84 122/68 06/06 14:47 :00 98.7 83 223,0 99 35.9 9 14:47 83 124/78 05/26 10:15 :00 98.7 82 223,12. 8 98 36.1 2 10:15 82 112/80 04/14 10:09 :00 99.1 94 221,6.4 98 35.7 3 10:09 94 128/82 01/22 13:01 :00 97.7 87 217,0 97 35.0 2 13:01 87 122/82 11/03 10:42 :00 97.1 111 220,0 96 35.5 1 10:42 111 132/82 10/05 10:54 :00 97.7 90 220,0 98 35.5 1 10:54 90
--- OUTSIDE RECORDS SUMMARY | 2025-03-06 18:59 | XMS_ITS | Encounter Summary ---
Author Organization [facility] Address [address] [place] [address] Care Team Providers Care Fiscal Accountant Name Role Phone Radha Rodarte APN Primary Care Provider +1- [phone] Encounter Details Date Type Department Care Team (Latest Contact Info) Description 06/20/2001 Outpatient Historical [facility] [address] [place] [address] Jose Barbosa MD NO ADDRESS ON FILE DYSHIDROSIS (Primary Dx) Social History Tobacco Use Types Packs/Day Years Used Date Smoking Tobacco: Never Assessed Comments Unknown Sex and Gender Information Value Date Recorded Sex Assigned at Not on file 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
--- OUTSIDE RECORDS SUMMARY | 2025-03-06 18:59 | XMS_ITS | Encounter Summary ---
Author Organization [facility] Address [address] [place] [address] Care Team Providers Care City Marshal Name Role Phone Radha Rodarte APN Primary Care Provider +1- [phone] Encounter Details Date Type Department Care Team (Latest Contact Info) Description 06/14/2003 Outpatient Historical [facility] [address] [place] [address] DO [address] [place], [place] [id number] FEMALE GENITAL SYMPTOMS NOS (Primary Dx) Social History Tobacco Use Types Packs/Day Years Used Date Smoking Tobacco: Never Assessed Comments Unknown Sex and Gender Information Value Date Recorded Sex Assigned at Not on file 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
--- OUTSIDE RECORDS SUMMARY | 2025-03-06 18:59 | XMS_ITS | Encounter Summary ---
Author Organization [facility] Address [address] [place] [address] Care Team Providers Care Grab Jack Man Name Role Phone Radha Rodarte APN Primary Care Provider +1- [phone] Encounter Details Date Type Department Care Team (Late st Contact Info) Description 06/03/2018 Ancillary Orders [facility] [address] [facility] [address] [place] [address] Radha Rodarte APN [address] [place] [address] Unspecified lump in the right breast, upper outer quadrant Social History Tobacco Use Types Packs/Day Years Used Date Smoking Tobacco: Never Assessed Comments Unknown Sex and Gender Information Value Date Recorded Sex Assigned at Not on file 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
--- NOTE | 2025-03-06 19:19 | CTR_ITS ---
PROCEDURE INFORMATION: Exam: CT Abdomen And Pelvis With Contrast Exam date and time: 03/06/2025 7:56 PM Age: 39 years old Clinical indication: Abdominal pain; Prior surgery; Surgery date: 6+ months; Surgery type: Tubal; Additional info: Abd pain TECHNIQUE: Imaging protocol: Computed tomography of the abdomen and pelvis with contrast. Radiation optimization: All CT scans at this facility use at least one of these dose optimization techniques: automated exposure control; mA and/or kV adjustment per patient size (includes targeted exams where dose is matched to clinical indication); or iterative reconstruction. Contrast material: OMNI 350; Contrast volume: 100 ml; Contrast route: INTRAVENOUS (IV); COMPARISON: CT abdomen pelvis wo/w [id number] 05/22/2019 11:35 AM RADIATION DOSE METRICS: Total DLP (mGy-cm): 1050.13 FINDINGS: Lungs: There is 11 x 11 mm, previously 12 x 12 mm on 05/22/2019 pulmonary nodule in the left lung base (series 4, image 5). Given its stability over multiple years this is thought likely to be benign. Liver: Normal. No mass. Gallbladder and biliary ducts: Normal. No calcified stones. No ductal dilation. Pancreas: Normal. No ductal dilation. Spleen: Normal. No splenomegaly. Adrenal glands: Normal. No mass. Kidneys and ureters: Normal. No hydronephrosis. Stomach and bowel: Unremarkable. No obstruction. No mucosal thickening. Appendix: No evidence of appendicitis. Intraperitoneal space: Unremarkable. No free air. No significant fluid collection. Vasculature: Unremarkable. No abdominal aortic aneurysm. Lymph nodes: Unremarkable. No enlarged lymph nodes. Urinary bladder: Unremarkable as visualized. Reproductive: Unremarkable as visualized. Bones/joints: Unremarkable. No acute fracture. Soft tissues: Unremarkable. CT/CT abdomen pelvis w con* [id number] IMPRESSION: 1. No bowel obstruction or inflammatory process associated with the bowel. 2. No free air or significant free fluid in the abdomen or pelvis. 3. No evidence of appendicitis.
--- NOTE | 2025-03-06 19:21 | W.ED.ABDPA2 ---
HPI - Abdominal Pain General: Chief Complaint: Abdominal Pain Stated Complaint: ABD Pain Time Seen by Provider: 03/06/25 19:19 Source: patient Mode of arrival: ambulatory Limitations: no limitations History of Present Illness: 39-year-old female states she been having diffuse abdominal pains going on for last 5 or 6 days. States pains been sharp in nature and feels like she has had some abdominal swelling. Rates her pain a 7 out of 10 currently she denies any vomiting denies any diarrhea denies any fevers denies any worse or improving factors. Has had a history of her tubes tied no other surgeries in the past Related Data Home Medications ?Medication ?Instructions ?Recorded ?Confirmed albuterol sulfate 2.5 mg/3 mL 2.5 mg inhalation Q6H PRN wheezing 06/16/19 12/12/24 (0.083 %) solution for nebulization budesonide 0.25 mg/2 mL suspension 2 ml inhalation BID PRN Wheezing 06/16/19 12/12/24 for nebulization budesonide-formoterol HFA 80 2 puff inhalation BID PRN 06/16/19 12/12/24 mcg-4.5 mcg/actuation aerosol Shortness Of Breath Or Wheezing inhaler (Symbicort) bupropion HCl 150 mg 24 hr tablet, 150 mg PO DAILY 06/16/19 12/12/24 extended release Previous Rx's ?Medication ?Instructions ?Recorded acetaminophen 325 mg capsule 325 mg PO Q4H PRN fever or pain 01/17/20 #60 caps medroxyprogesterone 150 mg/mL 150 mg IM ONCE #1 mL 10/11/23 intramuscular syringe (Depo-Provera) ibuprofen 800 mg tablet 800 mg PO Q6H PRN pain #30 tabs 07/26/24 levothyroxine 125 mcg tablet 125 mcg PO DAILY #30 tabs 09/07/24 (Synthroid) dicyclomine 20 mg tablet 20 mg PO TID PRN abdominal pain 03/06/25 #20 tabs ondansetron 4 mg disintegrating 4 mg PO Q6H PRN nausea and 03/06/25 tablet vomiting #14 tabs Allergies Allergy/AdvReac Type Severity Reaction Status Date / Time Penicillins Allergy Severe peels skin Verified 03/06/25 19:28 off clindamycin Allergy ALGY-Hives Verified 03/06/25 19:28 aspirin AdvReac ADR-Abdominal Verified 03/06/25 19:28 Pain Review of Systems GI: Reports: abdominal pain PFSH ED PFSH: Medical History (Updated 03/06/25 @ 20:23 by Vivienne Littlejohn MD) No pertinent past medical history neghx: htn,dm,dvt/pe PCP: Negin Mon Endometriosis determined by laparoscopy Mental disability without special needs Depression Anxiety Asthma Surgical History H/O laparoscopy 01/17/2020- diagnostic laparoscopy performed by Dr. Mccoy at [facility] History of tonsillectomy H/O tubal ligation H/O colonoscopy 09/2019 H/O esophagogastroduodenoscopy 09/2019 Family History Mother Glaucoma Hypertension Diabetes Hyperlipidemia Father Cancer Denies family history of Anesthesia complication Bleeding disorder Stroke Social History Smoking and tobacco/nicotine status: current every day tobacco/nicotine user Physical Exam Const: COMMON NORMALS: no acute distress, patient oriented x3 and healthy appearing HENMT: COMMON NORMALS: normocephalic and atraumatic HEAD & SCALP: normocephalic and atraumatic Neck/C-Spine: COMMON NORMALS: full ROM and supple Chest: COMMONS NORMALS: normal inspection of the chest Resp: COMMON NORMALS: normal respiratory effort Cardio: COMMON NORMALS: regular rate, regular rhythm and No murmurs present (Cardio) RATE: regular rate RHYTHM: regular rhythm GI: COMMON NORMALS: Normal to inspection, nondistended, normoactive bowel sounds present, Soft to palpation and no masses PALPATION: Yes Soft to palpation OTHER: diffuse tenderness Extremity: COMMON NORMALS: normal to inspection and full ROM Neuro: COMMON NORMALS: patient oriented x3, moves all extremities and no focal motor deficits Psych: COMMON NORMALS: mental status grossly normal, Normal thought process present and cooperative THOUGHT PROCESS: Normal thought process present Skin: COMMON NORMALS: no rashes or lesions noted and no wounds GENERAL SKIN EXAM: no rashes or lesions noted Course Vital Signs: Vital signs: Vital Signs Temperature 98.1 F 03/06/25 19:23 Pulse Rate 81 03/06/25 19:35 Respiratory Rate 17 03/06/25 19:34 Blood Pressure 138/91 03/06/25 19:35 Pulse Oximetry 98 03/06/25 19:35 Oxygen Delivery Me thod Room Air 03/06/25 19:35 MDM - Abdominal Pain Medical Decision Making Patient presents here with abdominal pain going on for days. Differential includes cholecystitis, appendicitis, bowel obstruction, diverticulitis. These were all ruled out here a CT scan was performed which I reviewed showed no acute abnormalities. Lab work showed no significant abnormalities as well. Her pain has improved here abdominal exam and discharge is benign. Will prescribe her dicyclomine for pain along with Zofran she is to follow-up with PCP in 3 to 5 days I did go over all these findings with her and family they understand agree to plan she is to return if worsening Medical Records I reviewed the patient's medical records. Lab Data I reviewed the patient's lab results. 03/06/25 19:30 03/06/25 19:30 Labs/Radiology: Radiology Impressions Abdomen/Pelvis CT 03/06/25 19:19 IMPRESSION: 1. No bowel obstruction or inflammatory process associated with the bowel. 2. No free air or significant free fluid in the abdomen or pelvis. 3. No evidence of appendicitis. Laboratory Results WBC 14.98 10^3/uL (3.29-11.43) H 03/06/25 19:30 RBC 4.47 10^6/uL (3.85-5.65) 03/06/25 19:30 Hgb 13.70 g/dL (11.27-16.99) 03/06/25 19:30 Hct 40.4 % (36-47) 03/06/25 19:30 MCV 90.4 fl (85-98) 03/06/25 19:30 MCH 30.6 pg (27-33) 03/06/25 19: MCHC 33.9 g/dL (30-55) 03/06/25 19:30 RDW 13.8 % (12.1-15.1) 03/06/25 19:30 Plt Count 346 10^3/cmm (157-399) 03/06/25 19:30 MPV 8.7 fL (7.4-10.4) 03/06/25 19: Neut % (Auto) 55.6 % 03/06/25 19:30 Lymph % (Auto) 35.9 % 03/06/25 19:30 Clay % (Auto) 4.9 % 03/06/25 19:30 Eos % (Auto) 2.1 % 03/06/25 19: Baso % (Auto) 0.6 % 03/06/25 19: Neut # (Auto) 8.32 10^3/uL (1.8-7.7) H 03/06/25 19: Lymph # (Auto) 5.4 10^3/uL (0.8-4.8) H 03/06/25 19: Clay # (Auto) 0.7 10^3/uL (0.2-0.9) 03/06/25 19: Eos # (Auto) 0.3 10^3/uL (0.0-0.8) 03/06/25 19: Baso # (Auto) 0.1 10^3/uL (0.0-0.1) 03/06/25 19: Nucleated RBC % (auto) 0 % 03/06/25 19: Nucleated RBCs # 0.0 /100WBC 03/06/25 19:30 Sodium 138 mmol/L (136-145) 03/06/25 19: Potassium 3.5 mmol/L (3.5-5.1) 03/06/25 19: Chloride 102 mmol/L (98-107) 03/06/25 19: Carbon Dioxide 23 mmol/L (22-29) 03/06/25 19: Anion Gap 16.5 (5-19) 03/06/25 19: BUN 7 mg/dL (6-20) 03/06/25 19:30 Creatinine 0.6 mg/dL (0.5-0.9) 03/06/25 19: GFR Calculation 111.9 mL/min (90-130) 03/06/25 19: Glucose 98 mg/dL (65-115) 03/06/25 19: Calculated Osmolality 284 mOsm/kg (285-295) L 03/06/25: Calcium 9.2 mg/dL (8.5-10.5) 03/06/25: Total Bilirubin 0.2 mg/dL (0.15-1.2) 03/06/25 19:30 AST 17 U/L (0-32) 03/06/25 19:30 ALT 14 U/L (0-33) 03/06/25 19:30 Alkaline Phosphatase 147 U/L (35-105) H 03/06/25 19:30 Total Protein 7.5 g/dL (6.6-8.7) 03/06/25 19: Albumin 4.0 g/dL (3.5-5.2) 03/06/25 19: Globulin 3.5 g/dL (1.3-4.6) 03/06/25 19: Lipase 20 U/L (13-60) 03/06/25 19:30 Urine Color Yellow (Yellow) 03/06/25 19: Urine Appearance Clear (CLEAR) 03/06/25 19: Urine pH 6.5 (5-7) 03/06/25 19:22 Ur Specific Talmage 1.003 (1.005-1.030) L 03/06/25 19:22 Urine Protein Negative (Negative) 03/06/25 19:22 Urine Glucose (UA) Negative (Normal) 03/06/25 19:22 Urine Ketones Negative (Negative) 03/06/25 19: Urine Blood 2+ (Negative) A 03/06/25: Urine Nitrate Negative (Negative) 03/06/25 19: Urine Bilirubin Negative (Negative) 03/06/25 19:22 Urine Urobilinogen 0.2 mg/dL (Negative) 03/06/25 19:22 Ur Leukocyte Esterase Negative (Negative) 03/06/25 19:22 Urine RBC 0-2 /hpf (0-2) 03/06/25 19:22 Urine WBC 0-5 /hpf (0-5) 03/06/25 19:22 Ur Squamous Epith Cells 0-5 /hpf (0-5) 03/06/25 19:22 Amorphous Sediment Not Reportable 03/06/25 19:22 Urine Bacteria None seen /hpf (NONE) 03/06/25 19:22 Hyaline Casts 0-4 /lpf H 03/06/25 19:22 All radiology interpretation(s) finalized by discharge Discharge Plan Discharge Patient Disposition: Home Clinical Impression: Abdominal pain Qualifiers: Abdominal location: generalized Qualified Code(s): R10.84 - Generalized abdominal pain Condition: Stable Prescriptions: New ondansetron 4 mg tablet,disintegrating 4 mg PO Q6H PRN (Reason: nausea and vomiting) Qty: 14 0RF dicyclomine 20 mg tablet 20 mg PO TID PRN (Reason: abdominal pain) Qty: 20 0RF No Action Symbicort 80-4.5 mcg/actuation HFA aerosol inhaler 2 puff INHALATION BID PRN (Reason: Shortness Of Breath Or Wheezing) albuterol sulfate 2.5 mg /3 mL (0.083 %) solution for nebulization 2.5 mg INHALATION Q6H PRN (Reason: wheezing) bupropion HCl 150 mg tablet extended release 24 hr 150 mg PO DAILY budesonide 0.25 mg/2 mL suspension for nebulization 2 ml INHALATION BID PRN (Reason: Wheezing) medroxyprogesterone [Depo-Provera] 150 mg/mL syringe 150 mg IM ONCE Qty: 1 3RF ibuprofen 800 mg tablet 800 mg PO Q6H PRN (Reason: pain) Qty: 30 3RF levothyroxine [Synthroid] 125 mcg tablet 125 mcg PO DAILY Qty: 30 4RF acetaminophen 325 mg capsule 325 mg PO Q4H PRN (Reason: fever or pain) Qty: 60 0RF Discharge Orders: Discharge ED (Routine); Ordered 03/06/25 Ordered By: Vivienne Littlejohn Referrals: Jung Agarwal MD [Primary Care Provider, Family Practice] - 4-7 days Discharge Diet: Advance as tolerated Discharge Activity: Resume usual activity Patient Instructions: Abdominal Pain (ED) Print Language: Vietnamese Coding Level of Care Code ED Supervisor [employer] for [employer] Calvo
[2025-03-06 19:23] VITALS: BP 114/97; PULSE 85; RESP 18; TEMP 36.7; O2SAT 98; BMI 39.1
[2025-03-06 19:34] VITALS: RESP 17; O2SAT 99
[2025-03-06] MEDS: morphine 4 mg/mL SDV 1 mL IVP (19:34)
[2025-03-06 19:35] VITALS: BP 138/91; PULSE 81; O2SAT 98
[2025-03-06] MEDS: ondansetron 2 mg/ML SDV 2 mL 4 MG IVP (19:35)
[2025-03-06 19:37] LABS: Hematocrit 40.4 % (36-47); Hemoglobin 13.70 g/dL (11.27-16.99); Mean Corpuscular HGB Conc 33.9 g/dL (30-55); Mean Corpuscular Hemoglobin 30.6 pg (27-33); Mean Corpuscular Volume 90.4 fl (85-98); Nucleated Red Blood Cells % 0 %; Platelet Count 346 10^3/cmm (157-399); Red Blood Count 4.47 10^6/uL (3.85-5.65); White Blood Count 14.98 10^3/uL (3.29-11.43)
[2025-03-06 19:46] LABS: Glucose Urine UA Negative (Normal); Nitrate Urine Negative (Negative); Specific Gravity, Urine 1.003 (1.005-1.030)
[2025-03-06 19:48] LABS: Add Urine Microscopic? YES
[2025-03-06 19:50] LABS: Slide Review Slide Review Perform
[2025-03-06 19:53] LABS: Alanine Aminotransferase 14 U/L (0-33); Albumin Level 4.0 g/dL (3.5-5.2); Alkaline Phosphatase 147 U/L (35-105); Anion Gap 16.5 (5-19); Aspartate Amino Transferase 17 U/L (0-32); Blood Urea Nitrogen 7 mg/dL (6-20); Calcium 9.2 mg/dL (8.5-10.5); Carbon Dioxide 23 mmol/L (22-29); Chloride 102 mmol/L (98-107); Globulin 3.5 g/dL (1.3-4.6); Glucose 98 mg/dL (65-115); Lipase 20 U/L (13-60); Osmolality Calculated 284 mOsm/kg (285-295); Potassium 3.5 mmol/L (3.5-5.1); Sodium 138 mmol/L (136-145); Total Protein 7.5 g/dL (6.6-8.7)
[2025-03-06] MEDS: iohexol 350 mg/mL 500 mL Btl (per mL) IV (19:58)
== END 2025-03-06 20:45 | disposition home or self-care (01) ==
PROVIDERS: Emergency Provider Emergency Medicine; PCP Family Medicine
DX: R10.84 Generalized abdominal pain (principal); Z72.0 Tobacco use
CPT/HCPCS: 74177; 80053; 81001; 83690; 85025; 96374; 96375; 99285; J2270; J2405